=== PATIENT | male | born 1980 | race Caucasian/White ===

== ENCOUNTER 2018-11-25 03:09 | Emergency (ER) | payer OTHER, BC ==
[~2018-11-25] VITALS: Ht 172.7 cm; Wt 136.1 kg
--- NOTE | 2018-11-25 03:28 | ED Upper Extremity ---
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 He says a gallon of water got knocked off a shelf and he grabbed it with his right hand and felt a popping sensation in his third finger with some swelling and bruising at the base of his right finger distal metacarpal. He is just a few days after finishing ciprofloxacin for a kidney infection. He does not have any significant medical history nor does he take any medicines routinely. He is not having any fevers, chills, nausea, vomiting, diarrhea, dysuria, cough. He's having some pain on movement but good sensation. He is left-handed and has no previous injury or surgery to his right hand. Allergies and Home Medications Allergies Coded Allergies: codeine (Verified Allergy, Unknown, 11/25/18) Patient Home Medication List Home Medication List Reviewed: Yes Review of Systems Constitutional: No chills, No fever EENTM: No ear discharge, No ear pain Respiratory: No cough, No short of breath Cardiovascular: No edema Gastrointestinal: No abdominal pain, No constipation, No diarrhea Genitourinary: No discharge, No dysuria Musculoskeletal: see HPI; No back pain; joint pain Past Vukgwwh-Bpcini-Jdmbym Hx Patient Social History Alcohol Use: Denies Use Recreational Drug Use: No Smoking Status: Never a Smoker Recent Foreign Travel: No Contact w/Someone Who Travel: No Physical Exam Vital Signs Vital Signs - First Documented 11/25/18 03:17 Temp 98.0 Pulse 84 Resp 16 B/P (MAP) 148/83 (104) Pulse Ox 98 O2 Delivery Room Air Capillary Refill : Height, Weight, BMI Height: '" Weight: lbs. oz. kg; BMI Method: General Appearance: WD/WN, no apparent distress Cardiovascular: normal peripheral pulses, regular rate, rhythm Respiratory: no respiratory distress, no accessory muscle use Elbow/Forearm: normal inspection, non-tender, no evidence of injury, normal ROM , Right Wrist: Yes normal inspection, Yes non-tender, Yes no evidence of injury, Yes normal ROM Hand: Right, ecchymosis (distal third metacarpal and base of the proximal phalange of the third digit), soft tissue tenderness, swelling Neurologic/Psychiatric: no motor/sensory deficits, alert, oriented x 3 Skin: normal color, warm/dry, other (capillary refill is brisk less than 1 second.) Progress/Results/Core Measures Results/Orders My Orders Orders - SUMA MAYNARD Hand, Right, 3 Views (11/25/18 03:21) Acetaminophen Tablet (Tylenol Tablet) (11/25/18 03:30) Vital Signs/I&O 11/25/18 03:17 Temp 98.0 Pulse 84 Resp 16 B/P (MAP) 148/83 (104) Pulse Ox 98 O2 Delivery Room Air Progress Progress Note : Time: 03:26 Progress Note Been using a fluoroquinolone and has a popping sensation and bruising and swelling so we'll get an x-ray plain film. Tylenol and ice. He has full range of motion and 4 out of 5 strength on that right hand. Diagnostic Imaging Diagonstic Imaging: Xray Plain Films/CT/US/NM/MRI: hand (right) Comments No acute osseous abnormality noted 3 view hand Reviewed: Reviewed by Me Departure Impression Primary Impression: Contusion of hand including fingers Qualified Codes: S60.221A - Contusion of right hand, initial encounter; S60.00XA - Contusion of unspecified finger without damage to nail, initial encounter Additional Impression: Sprain and strain of interphalangeal (joint) of hand Qualified Codes: S63.632A - Sprain of interphalangeal joint of right middle finger, initial encounter Disposition: 01 HOME, SELF-CARE Condition: Stable Departure-Patient Inst. Decision time for Depature: 03:33 Referrals: NO,LOCAL PHYSICIAN (PCP/Family) Primary Care Physician Patient Instructions: Contusion (DC) Add. Discharge Instructions: Apply ice for the first couple days 20 minutes on every 4-6 hours. Use Tylenol and/or ibuprofen as necessary for pain. Elevate the hand above the level of your heart while at rest or sleeping. You may wrap and Umberto bandage around your hand for compression as necessary for swelling. Do some passive range of motion exercises to keep your hand strong on the right side. If you're not seeing some improvement in 7-10 days follow-up with primary care for reevaluation. All discharge instructions reviewed with patient and/or family. Voiced understanding. Work/School Note: Work Release Form Date Seen in the Emergency Department: Nov 25, 2018 Return to Work: Nov 25, 2018 Restrictions: Need Release from Doctor Other Restrictions Listed Below: Limit use of the right hand until 11/26/18. SUMA MAYNARD Nov 25, 2018 03:28
[2018-11-25] MEDS ORDERED: ACETAMINOPHEN 500 MG TAB (TYLENOL) PO ONE (03:30)
[2018-11-25 03:38] VITALS: BP 148/83
--- NOTE | 2018-11-25 06:54 | Diagnostic Imaging Report ---
INDICATION: Right third finger injury with pain and swelling. COMPARISON: None. DISCUSSION: Three views of the right hand were obtained. No acute fracture or dislocation identified. No significant degenerative disease. Alignment is anatomic. Soft tissues are unremarkable. No radiopaque foreign body. IMPRESSION: 1. Negative right hand. Dictated by: Dictated on workstation # [id number]
== END 2018-11-25 03:38 | disposition home or self-care (01) ==
LOC: ER 03:13
DX: S63.632A Sprain of interphalangeal joint of right middle finger, initial encounter (principal); S60.221A Contusion of right hand, initial encounter; Z88.5 Allergy status to narcotic agent; X50.1XXA Overexertion from prolonged static or awkward postures, initial encounter; Y92.512 Supermarket, store or market as the place of occurrence of the external cause
CPT/HCPCS: 73130

== ENCOUNTER 2019-01-02 01:20 | Emergency (ER) | payer BC, OTHER ==
[~2019-01-02] VITALS: Ht 172.7 cm; Wt 131.5 kg
[2019-01-02] MEDS ORDERED: NITROGLYCERIN 0.4 MG SL TABS BTL 25'S SL ONE (01:25)
[2019-01-02] MEDS ORDERED: ASPIRIN 81 MG CHEW (CHILDREN'S ASA) ONE (01:25)
--- NOTE | 2019-01-02 01:29 | ED Chest Pain ---
General Chief Complaint: Chest Pain Stated Complaint: CHEST PAIN Source: patient, EMS Exam Limitations: no limitations History of Present Illness Date Seen by Provider: Jan 02, 2019 Time Seen by Provider: 01:18 Initial Comments Here with report of right-sided chest pain that was initially 6-7 out of 10 and sharp and radiating to the back. It started about 11:30 PM. Was associated with sweating. Ultimately EMS was called at about 1 AM when pain continued and that' s when the sweating and started. Arrives here improved with pain 5 out of 10 and dull but still right-sided and radiating to the back. Was associated with chest tightness or shortness of breath. Denies nausea or vomiting. Last ate prior to onset of his shift a few hours ago. 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 No overhead lifting. Does have history of gastric bypass. Timing/Duration: 1-3 hours, other (getting better) Severity/Quality: moderate, dull, sharp Location: central Radiation: back Prior CP/Workup: no prior chest pain Modifying Factors: improves with rest ASA po STRAINER TENDER: No NTG SL STRAINER TENDER: No Associated Symptoms: No abdominal pain; back pain, diaphoresis, edema (right leg which she states is chronic but comes and goes. Seems to be worse over the last couple of days.); No nausea/vomiting; shortness of breath; No weakness Allergies and Home Medications Allergies Coded Allergies: codeine (Verified Allergy, Unknown, 11/25/18) Patient Home Medication List Home Medication List Reviewed: Yes Review of Systems Review of Systems Constitutional: see HPI; No chills, No fever EENTM: No Symptoms Reported Respiratory: See HPI; Denies Cough, Denies Wheezing Cardiovascular: Denies Irregular Heart Rate, Denies Palpitations Gastrointestinal: Denies Nausea, Denies Vomiting Genitourinary: No Symptoms Reported Musculoskeletal: see HPI; No muscle weakness, No neck pain Skin: no symptoms reported Psychiatric/Neurological: No Symptoms Reported All Other Systems Reviewed Negative Unless Noted: Yes Past Gzbqmhz-Rvwbaq-Qczbth Hx Past Med/Social Hx: Reviewed Nursing Past Med/Soc Hx Patient Social History Alcohol Use: Denies Use Recreational Drug Use: No Smoking Status: Never a Smoker 2nd Hand Smoke Exposure: No Recent Hopitalizations: No Immunizations Up To Date Tetanus Booster (TDap): Unknown Seasonal Allergies Seasonal Allergies: No Past Medical History Surgeries: Yes (gastric sleeve) Respiratory: No Cardiac: No Neurological: No Genitourinary: No Gastrointestinal: No Musculoskeletal: No Endocrine: No HEENT: No Cancer: No Psychosocial: No Integumentary: No Blood Disorders: No Family Medical History Reviewed Nursing Family Hx Physical Exam Vital Signs Vital Signs - First Documented Capillary Refill : Height, Weight, BMI Height: 5'8.00" Weight: 300lbs. oz. [id number]; BMI Method:Stated General Appearance: No Apparent Distress, WD/WN HEENT: PERRL/EOMI, TMs Normal, Pharynx Normal Neck: Full Range of Motion, Normal Inspection, Non Tender, Supple Respiratory: Chest Non Tender, Lungs Clear, Normal Breath Sounds Cardiovascular: Regular Rate, Rhythm, No Murmur Gastrointestinal: Non Tender, Soft Extremity: Normal Range of Motion, No Calf Tenderness, Pedal Edema (right lower extremity nonpitting) Neurologic/Psychiatric: Alert, Oriented x3, No Motor/Sensory Deficits, Normal Mood/Affect Skin: Normal Color, Warm/Dry Progress/Results/Core Measures Results/Orders Lab Results Laboratory Tests Test 01/02/19 01:25 Range/Units White Blood Count 7.1 4.3-11.0 10^3/uL Red Blood Count 4.62 4.35-5.85 10^6/uL Hemoglobin 12.7 L 13.3-17.7 G/DL Hematocrit 40 40-54 % Mean Corpuscular Volume 86 80-99 FL Mean Corpuscular Hemoglobin 28 25-34 PG Mean Corpuscular Hemoglobin Concent 32 32-36 G/DL Red Cell Distribution Width 13.8 10.0-14.5 % Platelet Count 272 130-400 10^3/uL Mean Platelet Volume 9.8 7.4-10.4 FL Neutrophils (%) (Auto) 55 42-75 % Lymphocytes (%) (Auto) 32 12-44 % Monocytes (%) (Auto) 8 0-12 % Eosinophils (%) (Auto) 5 0-10 % Basophils (%) (Auto) 1 0-10 % Neutrophils # (Auto) 3.9 1.8-7.8 X 10^3 Lymphocytes # (Auto) 2.3 1.0-4.0 X 10^3 Monocytes # (Auto) 0.6 0.0-1.0 X 10^3 Eosinophils # (Auto) 0.4 H 0.0-0.3 10^3/uL Basophils # (Auto) 0.0 0.0-0.1 10^3/uL Prothrombin Time 13.6 12.2-14.7 SEC INR Comment 1.0 0.8-1.4 Activated Partial Thromboplast Time 31 24-35 SEC D-Dimer 0.29 0.00-0.49 UG/ML Sodium Level 144 135-145 MMOL/L Potassium Level 4.0 3.6-5.0 MMOL/L Chloride Level 108 H 98-107 MMOL/L Carbon Dioxide Level 24 21-32 MMOL/L Anion Gap 12 5-14 MMOL/L Blood Urea Nitrogen 11 7-18 MG/DL Creatinine 0.77 0.60-1.30 MG/DL Estimat Glomerular Filtration Rate > 60 BUN/Creatinine Ratio 14 Glucose Level 85 70-105 MG/DL Calcium Level 9.5 8.5-10.1 MG/DL Corrected Calcium 9.5 8.5-10.1 MG/DL Magnesium Level 2.6 H 1.8-2.4 MG/DL Total Bilirubin 0.8 0.1-1.0 MG/DL Aspartate Amino Transf (AST/SGOT) 24 5-34 U/L Alanine Aminotransferase (ALT/SGPT) 27 0-55 U/L Alkaline Phosphatase 102 40-136 U/L Myoglobin 24.4 10.0-92.0 NG/ML Troponin I < 0.028 <0.028 NG/ML Total Protein 7.8 6.4-8.2 GM/DL Albumin 4.0 3.2-4.5 GM/DL Lipase 25 8-78 U/L My Orders Orders - MABEL GONZALEZ MD Cbc With Automated Diff (01/02/19) Magnesium (01/02/19) Chest 1 View, Ap/Pa Only (01/02/19) Ekg Tracing (01/02/19) Cardiac Profile 1 (01/02/19) Comprehensive Metabolic Panel (01/02/19) Myoglobin Serum (01/02/19) Protime With Inr (01/02/19) Partial Thromboplastin Time (01/02/19) O2 (01/02/19 01:27) Monitor-Rhythm Ecg Trace Only (01/02/19 01:27) Lipid Panel (01/03/19 06:00) Ed Iv/Invasive Line Start (01/02/19 01:27) Lipase (01/02/19 01:27) Fibrin Degradation Products (01/02/19 01:27) Aspirin Chewable Tablet (Baby Aspirin Ch (01/02/19 01:30) Nitroglycerin 0.4 Mg Btl 25's (Nitrostat (01/02/19 01:25) Aspirin Chewable Tablet (Baby Aspirin Ch (01/02/19 01:25) Nitroglycerin 0.4 Mg Btl 25's (Nitrostat (01/02/19 01:30) Medications Given in ED Current Medications Medications Dose Ordered Sig/Hung Route Start Time Stop Time Status Last Admin Dose Admin Aspirin 324 mg ONCE ONCE PO 01/02/19 01:30 01/02/19 01:31 DC 01/02/19 01:30 324 MG Nitroglycerin 0.4 mg UD PRN SL 01/02/19 01:30 01/02/19 01:50 DC 01/02/19 01:49 0.4 MG Vital Signs/I&O 01/02/19 01/02/19 01:20 01:20 Temp 97.8 Pulse 82 Resp 18 B/P (MAP) 144/93 (110) Pulse Ox 97 O2 Delivery Room Air Room Air Progress Progress Note : Progress Note Seen and evaluated. IV by EMS. Labs, EKG, chest x-ray, ASA 324 mg by mouth ordered. Nitroglycerin sublingual initiated. Monitor patient. 0210: Pain resolved after one nitroglycerin. Labs, x-ray and EKG did not show any significant findings. I did discuss several options with the patient including admission. His works at [employer] in [place] and he is considering wanting to go over there. Also discussed option for rule out although higher risk given his presentation with diaphoresis. He wants to talk with his to help decide on direction of further course of care. Continue to monitor. 0230: Initiated transfer to [facility] in [facility] per patient request. 0240: I did discuss the case with Dr. Peter regarding evaluation in transfer. She has accepted the patient for transfer. We are pending bed assignment which may take a little while. This was discussed with the patient who agrees. To be transferred via EMS when bed is available. Initial ECG Impression Date: Jan 02, 2019 Initial ECG Impression Time: 01:20 Initial ECG Rate: 68 Initial ECG Rhythm: Normal Sinus Initial ECG Impression: Normal Initial ECG Comparisson: No Previous ECG Available Comment Sinus rhythm with normal axis. No evidence of ST elevation IN. No previous available for comparison. Interpreted by me. Diagnostic Imaging Diagonstic Imaging: Xray Plain Films/CT/US/NM/MRI: chest Comments No acute findings Reviewed: Reviewed by Me Departure Impression Primary Impression: Chest pain Qualified Codes: R07.9 - Chest pain, unspecified Disposition: 02 XFER SHT-TRM HOSP Condition: Stable Transfer Time Spoke to Accepting Phy: 02:40 Transfer Facility: [place], [place], Dr. Peter accepting Method of Transfer: EMS Departure-Patient Inst. Referrals: NO,LOCAL PHYSICIAN (PCP/Family) Primary Care Physician MABEL GONZALEZ MD Jan 02, 2019 01:29
[2019-01-02] MEDS ORDERED: ASPIRIN 81 MG CHEW (CHILDREN'S ASA) PO ONE (01:30)
[2019-01-02] MEDS: NITROGLYCERIN 0.4 MG SL TABS BTL 25'S SL PRN ×3 (01:30→01:49)
[2019-01-02 01:35] LABS: BASOPHILS % (AUTO) 1 % (0-10); EOSINOPHILS # (AUTO) 0.4 10^3/uL (0.0-0.3); EOSINOPHILS % (AUTO) 5 % (0-10); HEMATOCRIT 40 % (40-54); HEMOGLOBIN 12.7 G/DL (13.3-17.7); LYMPHOCYTES # (AUTO) 2.3 X 10^3 (1.0-4.0); LYMPHOCYTES % (AUTO) 32 % (12-44); MEAN CORPUSCULAR HEMOGLOBIN 28 PG (25-34); MEAN CORPUSCULAR HGB CONC 32 G/DL (32-36); MEAN CORPUSCULAR VOLUME 86 FL (80-99); MEAN PLATELET VOLUME 9.8 FL (7.4-10.4); MONOCYTES # (AUTO) 0.6 X 10^3 (0.0-1.0); MONOCYTES % (AUTO) 8 % (0-12); NEUTROPHILS # (AUTO) 3.9 X 10^3 (1.8-7.8); NEUTROPHILS % (AUTO) 55 % (42-75); PLATELET COUNT 272 10^3/uL (130-400); RED CELL DISTRIBUTION WIDTH 13.8 % (10.0-14.5); WHITE BLOOD COUNT 7.1 10^3/uL (4.3-11.0)
[2019-01-02 01:44] LABS: PROTHROMBIN TIME PATIENT 13.6 SEC (12.2-14.7)
[2019-01-02 01:52] LABS: ALANINE AMINOTRANSFERASE 27 U/L (0-55); ALKALINE PHOSPHATASE 102 U/L (40-136); BILIRUBIN,TOTAL 0.8 MG/DL (0.1-1.0); BUN/CREATININE RATIO 14; CALCIUM 9.5 MG/DL (8.5-10.1); CARBON DIOXIDE 24 MMOL/L (21-32); CHLORIDE 108 MMOL/L (98-107); CREATININE SERUM 0.77 MG/DL (0.60-1.30); GFR ESTIMATED > 60; GLUCOSE 85 MG/DL (70-105); LIPASE 25 U/L (8-78); MAGNESIUM 2.6 MG/DL (1.8-2.4); SODIUM 144 MMOL/L (135-145); TOTAL PROTEIN 7.8 GM/DL (6.4-8.2)
--- NOTE | 2019-01-02 02:30 | NUR ---
NS FLUID BOLUS INITIATED BY [facility] FIELD ASSEMBLY SUPERVISOR, COMPLETE (1000ML).
--- NOTE | 2019-01-02 03:45 | NUR ---
PT AMB TO RESTROOM W/O DIFFICULTY. A&OX4.
--- NOTE | 2019-01-02 03:55 | NUR ---
PT REPORT CALLED TO MUKUL BARRAZA @ [facility]. UPON ARRIVAL PT TO ROOM #[id number].
[2019-01-02 04:45] VITALS: BP 111/69
--- NOTE | 2019-01-02 06:59 | Diagnostic Imaging Report ---
EXAM: CHEST 1 VIEW, AP/PA ONLY INDICATION: Chest pain. COMPARISON: None. FINDINGS: Normal heart size and pulmonary vascularity. No dense consolidation, pleural effusion or pneumothorax. No acute osseous findings. IMPRESSION: No acute cardiopulmonary findings. Dictated by: Dictated on workstation # [id number]
== END 2019-01-02 04:45 | disposition short-term general hospital (02) ==
LOC: EDUNIT# 01:20 → ER 01:22
DX: R07.9 Chest pain, unspecified (principal); Z88.5 Allergy status to narcotic agent; Z98.84 Bariatric surgery status
CPT/HCPCS: 36415; 71045; 80053; 83690; 83735; 83874; 84484; 85025; 85379; 85610; 85730; 93005; 93041